=== PATIENT | female | born 1985 | race African-American/Black ===

== ENCOUNTER 2017-12-03 02:16 | Emergency (ER) | payer SELFPAY ==
[2017-12-03] MEDS ORDERED: D5NS 0.2% 1,000 ML IV SCH (05:00)
[2017-12-03 05:20] LABS: Basophils # (Auto) 0.2 K/mm3 (0.0-0.1); Basophils % (Auto) 1.2 % (0.0-1.8); Eosinophils # (Auto) 0.1 K/mm3 (0.0-0.4); Eosinophils % (Auto) 0.3 % (0.0-4.3); Hematocrit 23.3 % (30.3-42.9); Lymphocytes # (Auto) 2.1 K/mm3 (1.2-5.4); Lymphocytes % (Auto) 13.1 % (13.4-35.0); Mean Corpuscular HGB Conc 35 % (30-34); Mean Corpuscular Hemoglobin 36 pg (28-32); Mean Corpuscular Volume 104 fl (79-97); Monocytes % (Auto) 6.5 % (0.0-7.3); Platelet Count 574 K/mm3 (140-440); Red Blood Count 2.23 M/mm3 (3.65-5.03); Red Cell Distribution Width 18.2 % (13.2-15.2)
--- NOTE | 2017-12-03 06:54 | Emergency Department Report ---
ED General Adult HPI - General Chief complaint: Sickle Cell Crisis Stated complaint: SICKLE CELL CRISIS Time Seen by Provider: 12/03/17 06:18 Source: patient Mode of arrival: Ambulatory Limitations: No Limitations - History of Present Illness Initial comments: 32-year-old female with a past medical history is sickle cell crisis presents to the hospital complaints of pain secondary to sickle cell crisis since 1:00 yesterday afternoon. Patient complains of generalized body aches. She took a half oxycodone 30 mg and meloxicam prior to arrival and reports that pain has improved. Patient states that recently she's been diagnosed with ear infection and tendinitis and was placed on Meloxican, Medrol Dosepak, Ciprodex otic, and is currently taking oxycodone 30 mg and ibuprofen. Patient states she was picking at her left ear canal and he did have bleeding initially that has since resolved. Patient expresses that she is unsure if she should be on all this medication and requesting guidance and regarding her prescribed medications. Her customer service supervisor is Dr. Das. He does not have a primary care doctor. 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 She had a headache earlier and thought maybe it was secondary to her newly prescribed medications. This headache has since resolved. Patient denies fever. - Related Data Home Medications Medication Instructions Recorded Confirmed Last Taken Folic Acid [Folvite] 1 mg PO DAILY 05/14/13 12/03/17 09/06/13 Aspir-Low 81 mg PO DAILY 12/03/17 12/03/17 Unknown Ciprodex OTIC 5 drop AU QID 12/03/17 12/03/17 Unknown Hydroxyurea 500 mg PO DAILY 12/03/17 12/03/17 Unknown Ibuprofen 800 mg PO TID PRN 12/03/17 12/03/17 Unknown Medrol Dose Rick mg PO 12/03/17 Unknown Meloxicam 7.5 mg PO DAILY 12/03/17 12/03/17 Unknown Oxycodone HCl 30 mg PO DAILY PRN 12/03/17 12/03/17 Unknown Sertraline 50 mg PO DAILY 12/03/17 12/03/17 Unknown Allergies Allergy/AdvReac Type Severity Reaction Status Date / Time No Known Allergies Allergy Unverified 05/14/13 05:44 ED Review of Systems ROS: Stated complaint: SICKLE CELL CRISIS Other details as noted in HPI Comment: All other systems reviewed and negative ED Past Medical Hx - Past Medical History Hx Heart Attack/AMI: No Hx Congestive Heart Failure: No Hx Diabetes: No Hx Sickle Cell Disease: Yes (Hematology dr das) Hx Asthma: No Hx COPD: No - Surgical History Past Surgical History?: No - Social History Smoking Status: Never Smoker Substance Use Type: Marijuana - Medications Home Medications: Home Medications Medication Instructions Recorded Confirmed Last Taken Type Folic Acid [Folvite] 1 mg PO DAILY 05/14/13 12/03/17 09/06/13 History Aspir-Low 81 mg PO DAILY 12/03/17 12/03/17 Unknown History Ciprodex OTIC 5 drop AU QID 12/03/17 12/03/17 Unknown History Hydroxyurea 500 mg PO DAILY 12/03/17 12/03/17 Unknown History Ibuprofen 800 mg PO TID PRN 12/03/17 12/03/17 Unknown History Medrol Dose Rick mg PO 12/03/17 Unknown History Meloxicam 7.5 mg PO DAILY 12/03/17 12/03/17 Unknown History Oxycodone HCl 30 mg PO DAILY PRN 12/03/17 12/03/17 Unknown History Sertraline 50 mg PO DAILY 12/03/17 12/03/17 Unknown History ED Physical Exam - General Limitations: No Limitations - Other Other exam information: General: No limitations, patient is alert in no acute distress Head exam: Atraumatic, normocephalic Eyes exam: Normal appearance ENT: Moist mucous membrane, but lateral TMs normal. Abrasion to left ear canal without bleeding, erythema, or drainage. Neck exam: Normal inspection, full range of motion, no meningismus nontender Respiratory exam: Clear to auscultation bilateral, no wheezes, rales, crackles Cardiovascular: Normal rate and rhythm, normal heart sounds Abdomen: Soft, nondistended, and nontender, with normal bowel sounds, no rebound, or guarding Extremity: Full range of motion normal inspection no deformity Back: Normal Inspection, full range of motion, no tenderness Neurologic: Alert, oriented x3, cranial nerves intact, no motor or sensory deficit Psychiatric: normal affect, normal mood Skin: Warm, dry, intact ED Course Vital Signs 12/03/17 04:07 Temperature 98 F Pulse Rate 89 Respiratory 18 Rate Blood Pressure 121/56 O2 Sat by Pulse 100 Oximetry ED Medical Decision Making - Lab Data Result diagrams: 12/03/17 04:45 Lab Results 12/03/17 12/03/17 Range/Units 04:45 04:45 WBC 15.8 H (4.5-11.0) K/mm3 RBC 2.23 L (3.65-5.03) M/mm3 Hgb 8.0 L (10.1-14.3) gm/dl Hct 23.3 L (30.3-42.9) % MCV 104 H (79-97) fl MCH 36 H (28-32) pg MCHC 35 H (30-34) % RDW 18.2 H (13.2-15.2) % Plt Count 574 H (140-440) K/mm3 Lymph % (Auto) 13.1 L (13.4-35.0) % Mcnairy % (Auto) 6.5 (0.0-7.3) % Eos % (Auto) 0.3 (0.0-4.3) % Baso % (Auto) 1.2 (0.0-1.8) % Lymph # 2.1 (1.2-5.4) K/mm3 [place]nairy # 1.0 H (0.0-0.8) K/mm3 Eos # 0.1 (0.0-0.4) K/mm3 Baso # 0.2 H (0.0-0.1) K/mm3 Seg Neutrophils % 78.9 H (40.0-70.0) % Seg Neutrophils # 12.4 H (1.8-7.7) K/mm3 Percent Retic 8.10 H (0.78-2.58) % HCG, Qual Negative (Negative) - Medical Decision Making Patient have the signs and symptoms of a sickle cell crisis that is controlled with her current outpatient medication. Regarding guidance with the prescribed medication patient advised to follow-up with a primary care doctor and her customer service supervisor for further management. - Differential Diagnosis sickle cell crisis, infection, medication reaction Critical Care Time: No Critical care attestation.: If time is entered above; I have spent that time in minutes in the direct care of this critically ill patient, excluding procedure time. ED Disposition Clinical Impression: Sickle cell crisis Disposition: DC-01 TO HOME OR SELFCARE Is pt being admited?: No Does the pt Need Aspirin: No Condition: Stable Instructions: Sickle Cell Crisis (ED) Additional Instructions: Continue your current medication. Follow with the customer service supervisor and the primary care doctor provided or the primary care doctor of his choice. Referrals: AUREA ROY MD [Staff Physician] - 3-5 Days SANA ADS MD [Staff Physician] - 3-5 Days Time of Disposition: 06:55
[2017-12-03 07:12] VITALS: BP 94/52
== END 2017-12-03 07:14 | disposition home or self-care (01) ==
LOC: ED 02:16
DX: D57.00 Hb-SS disease with crisis, unspecified (principal); F12.10 Cannabis abuse, uncomplicated
CPT/HCPCS: 36415; 84703; 85025; 85045; 99283

== ENCOUNTER 2018-10-07 00:23 | Emergency (ER) | payer OTHER ==
[2018-10-07 01:07] VITALS: BP 128/78
[2018-10-07 01:49] LABS: Hematocrit 21.8 % (30.3-42.9); Hemoglobin 7.8 gm/dl (10.1-14.3); Mean Corpuscular HGB Conc 36 % (30-34); Mean Corpuscular Volume 101 fl (79-97); Platelet Count 498 K/mm3 (140-440); Red Blood Count 2.17 M/mm3 (3.65-5.03); Red Cell Distribution Width 18.9 % (13.2-15.2)
[2018-10-07 02:05] LABS: Alanine Aminotransferase 48 units/L (7-56); Albumin 4.4 g/dL (3.9-5); BUN/Creatinine Ratio 17; Blood Urea Nitrogen 10 mg/dL (7-17); Calcium 9.4 mg/dL (8.4-10.2); Hemolysis Index 24
[2018-10-07] MEDS ORDERED: BENADRYL IV ONE (03:07)
[2018-10-07] MEDS ORDERED: TORADOL IV ONE (03:07)
[2018-10-07] MEDS ORDERED: DILAUDID IV ONE ×2 (03:07→05:08)
[2018-10-07] MEDS ORDERED: ZOFRAN IV ONE (03:07)
--- NOTE | 2018-10-07 03:32 | Emergency Department Report ---
ED General Adult HPI - General Chief complaint: Sickle Cell Crisis Stated complaint: SICKLE CELL CRISIS Time Seen by Provider: 10/07/18 03:06 Source: patient Mode of arrival: Ambulatory Limitations: No Limitations - History of Present Illness Initial comments: 33-year-old female with past medical history sickle cell SS presents to the hospital complaining of pain secondary to sickle cell crisis for several days. Patient is using Motrin 800 mg and oxycodone 10 mg tablets without improvement. She complains of generalized joint pain. She currently denies chest pain, shortness of breath, headache, or abdominal pain. Patient denies cough, fever, or infectious symptom. She seldom has to come to the hospital because she is typically able to manage her sickle cell crisis attacks at home. Her meter inspector is Dr. Das. She does not have a port. Severity scale (0 -10): 10 - Related Data Home Medications Medication Instructions Recorded Confirmed Last Taken Folic Acid [Folvite] 1 mg PO DAILY 05/14/13 12/03/17 09/06/13 Aspir-Low 81 mg PO DAILY 12/03/17 12/03/17 Unknown Ciprodex OTIC 5 drop AU QID 12/03/17 12/03/17 Unknown Hydroxyurea 500 mg PO DAILY 12/03/17 12/03/17 Unknown Ibuprofen 800 mg PO TID PRN 12/03/17 12/03/17 Unknown Medrol Dose Rick mg PO 12/03/17 Unknown Meloxicam 7.5 mg PO DAILY 12/03/17 12/03/17 Unknown Oxycodone HCl 30 mg PO DAILY PRN 12/03/17 12/03/17 Unknown Sertraline 50 mg PO DAILY 12/03/17 12/03/17 Unknown Allergies Allergy/AdvReac Type Severity Reaction Status Date / Time No Known Allergies Allergy Verified 10/07/18 01:03 ED Review of Systems ROS: Stated complaint: SICKLE CELL CRISIS Other details as noted in HPI Comment: All other systems reviewed and negative ED Past Medical Hx - Past Medical History Hx Heart Attack/AMI: No Hx Congestive Heart Failure: No Hx Diabetes: No Hx Sickle Cell Disease: Yes (Hematology dr das) Hx Asthma: No Hx COPD: No - Social History Smoking Status: Never Smoker Substance Use Type: None - Medications Home Medications: Home Medications Medication Instructions Recorded Confirmed Last Taken Type Folic Acid [Folvite] 1 mg PO DAILY 05/14/13 12/03/17 09/06/13 History Aspir-Low 81 mg PO DAILY 12/03/17 12/03/17 Unknown History Ciprodex OTIC 5 drop AU QID 12/03/17 12/03/17 Unknown History Hydroxyurea 500 mg PO DAILY 12/03/17 12/03/17 Unknown History Ibuprofen 800 mg PO TID PRN 12/03/17 12/03/17 Unknown History Medrol Dose Rick mg PO 12/03/17 Unknown History Meloxicam 7.5 mg PO DAILY 12/03/17 12/03/17 Unknown History Oxycodone HCl 30 mg PO DAILY PRN 12/03/17 12/03/17 Unknown History Sertraline 50 mg PO DAILY 12/03/17 12/03/17 Unknown History ED Physical Exam - General Limitations: No Limitations - Other Other exam information: General: No limitations, patient is alert in no acute distress Head exam: Atraumatic, normocephalic Eyes exam: Normal appearance, pale conjunctivae ENT: Moist mucous membrane, normal oropharynx Neck exam: Normal inspection, full range of motion, no meningismus nontender Respiratory exam: Clear to auscultation bilateral, no wheezes, rales, crackles Cardiovascular: Normal rate and rhythm, normal heart sounds Abdomen: Soft, nondistended, and nontender, with normal bowel sounds, no rebound, or guarding Extremity: Full range of motion normal inspection no deformity Back: Normal Inspection, full range of motion, no tenderness Neurologic: Alert, oriented x3, cranial nerves intact, no motor or sensory deficit Psychiatric: normal affect, normal mood Skin: Warm, dry, intact ED Course Vital Signs 10/07/18 10/07/18 00:51 01:03 Temperature 97.7 F 97.1 F L Pulse Rate 89 85 Respiratory 16 18 Rate Blood Pressure 128/78 Blood Pressure 128/78 [Left] O2 Sat by Pulse 98 97 Oximetry ED Medical Decision Making - Lab Data Result diagrams: 10/07/18 01:19 10/07/18 01:19 Lab Results 10/07/18 10/07/18 Range/Units 01:19 01:19 WBC 11.2 H (4.5-11.0) K/mm3 RBC 2.17 L (3.65-5.03) M/mm3 Hgb 7.8 L (10.1-14.3) gm/dl Hct 21.8 L (30.3-42.9) % MCV 101 H (79-97) fl MCH 36 H (28-32) pg MCHC 36 H (30-34) % RDW 18.9 H (13.2-15.2) % Plt Count 498 H (140-440) K/mm3 Lymph # [employer] Tester Total Counted 100 Seg Neuts % (Manual) 54.0 (40.0-70.0) % Band Neutrophils % 0 % Lymphocytes % (Manual) 30.0 (13.4-35.0) % Reactive Lymphs % (Man) 1.0 % Monocytes % (Manual) 13.0 H (0.0-7.3) % Eosinophils % (Manual) 2.0 (0.0-4.3) % Basophils % (Manual) 0 (0.0-1.8) % Metamyelocytes % 0 % Myelocytes % 0 % Promyelocytes % 0 % Blast Cells % 0 % Nucleated RBC % 1.0 H (0.0-0.9) % Seg Neutrophils # Man 6.0 (1.8-7.7) K/mm3 Band Neutrophils # 0.0 K/mm3 Lymphocytes # (Manual) 3.4 (1.2-5.4) K/mm3 Abs React Lymphs (Man) 0.1 K/mm3 Monocytes # (Manual) 1.5 H (0.0-0.8) K/mm3 Eosinophils # (Manual) 0.2 (0.0-0.4) K/mm3 Basophils # (Manual) 0.0 (0.0-0.1) K/mm3 Metamyelocytes # 0.0 K/mm3 Myelocytes # 0.0 K/mm3 Promyelocytes # 0.0 K/mm3 Blast Cells # 0.0 K/mm3 Platelet Estimate Appe Large Platelets 1+ Anisocytosis 2+ Sickle Cells 1+ Percent Retic 8.60 H (0.78-2.58) % Sodium 140 (137-145) mmol/L Potassium 4.8 (3.6-5.0) mmol/L Chloride 104.3 (98-107) mmol/L Carbon Dioxide 26 (22-30) mmol/L Anion Gap 15 mmol/L BUN 10 (7-17) mg/dL Creatinine 0.6 L (0.7-1.2) mg/dL Estimated GFR > 60 ml/min BUN/Creatinine Ratio 17 % Glucose 103 H (65-100) mg/dL Calcium 9.4 (8.4-10.2) mg/dL Total Bilirubin 1.90 H (0.1-1.2) mg/dL AST 67 H (5-40) units/L ALT 48 (7-56) units/L Alkaline Phosphatase 91 (35-129) units/L Total Protein 7.4 (6.3-8.2) g/dL Albumin 4.4 (3.9-5) g/dL Albumin/Globulin Ratio 1.5 % - Medical Decision Making pt feels better with ed tx pt states baseline hgb 8 and therefore she does not require transfusion at this time Patient states she has enough pain medicine - Differential Diagnosis sickle cell anemia, sickle cell crisis Critical Care Time: No Critical care attestation.: If time is entered above; I have spent that time in minutes in the direct care of this critically ill patient, excluding procedure time. ED Disposition Clinical Impression: Sickle cell crisis, Sickle cell anemia Disposition: TO HOME OR SELFCARE Is pt being admited?: No Does the pt Need Aspirin: No Condition: Stable Instructions: Sickle Cell Crisis (ED) Additional Instructions: Take the medication as prescribed. Follow up with your doctor or the clinic/doctor provided. Return if symptoms worsen as indicated by your discharge instructions Referrals: SANA DAS MD [Staff Physician] - [facility] Time of Disposition: 05:47
[2018-10-07] MEDS ORDERED: D5NS 0.2% 1,000 ML IV SCH (04:00)
[2018-10-07 04:14] LABS: Basophils % (Manual) 0 % (0.0-1.8); Total Cells Counted 100
[2018-10-07 04:17] LABS: Anisocytosis 2+
[2018-10-07 04:18] LABS: Large Platelets 1+; Sickle Cells 1+
[2018-10-07 04:19] LABS: Platelet Estimate Appe
[2018-10-07] MEDS ORDERED: DILAUDID ONE (05:11)
== END 2018-10-07 07:10 | disposition home or self-care (01) ==
LOC: ED 00:23
DX: D57.00 Hb-SS disease with crisis, unspecified (principal); D57.1 Sickle-cell disease without crisis
CPT/HCPCS: 36415; 80053; 85007; 85025; 85045; 96374; 96375; 96376; 99283; J1170; J1200; J1885; J2405

== ENCOUNTER 2018-10-07 14:09 | Emergency (ER) | payer OTHER ==
[2018-10-07] MEDS ORDERED: TORADOL IV ONE (16:30)
[2018-10-07] MEDS ORDERED: DILAUDID IV ONE ×2 (16:31→17:35)
--- NOTE | 2018-10-07 16:31 | Emergency Department Report ---
ED General Adult HPI - General Chief complaint: Sickle Cell Crisis Stated complaint: SICKLE CELL CRISIS Time Seen by Provider: 10/07/18 16:24 Source: patient, RN notes reviewed, old records reviewed Mode of arrival: Ambulatory Limitations: No Limitations - History of Present Illness Initial comments: Hematology: Dr. Rolon This is a 33-year-old female, with a reported history of sickle cell disease, reports that she is not . Patient presents to the emergency room today with a recurrent complaint of nontraumatic left sided knee pain, and left anterior tibial pain. The pain is aching and sharp. It increases with palpation. It decreases with rest and pain medication. Patient was seen earlier on today for sickle cell crisis by my colleague Dr. Dutton, patient had a thorough and appropriate evaluation and was discharged. The patient was offered pain medication upon discharge but declined. She now indicates that she would like pain medication. She denies headache, neck pain, chest pain, abdominal pain, shortness of breath, fever, rash. Triggers include recreational alcohol consumption yesterday. -: Gradual Location: left, lower extremity Radiation: non-radiation Quality: aching Consistency: constant Improves with: medication, rest Worsens with: movement - Related Data Home Medications Medication Instructions Recorded Confirmed Last Taken Folic Acid [Folvite] 1 mg PO DAILY 05/14/13 12/03/17 09/06/13 Aspir-Low 81 mg PO DAILY 12/03/17 12/03/17 Unknown Ciprodex OTIC 5 drop AU QID 12/03/17 12/03/17 Unknown Hydroxyurea 500 mg PO DAILY 12/03/17 12/03/17 Unknown Ibuprofen 800 mg PO TID PRN 12/03/17 12/03/17 Unknown Medrol Dose Rick mg PO 12/03/17 Unknown Meloxicam 7.5 mg PO DAILY 12/03/17 12/03/17 Unknown Oxycodone HCl 30 mg PO DAILY PRN 12/03/17 12/03/17 Unknown Sertraline 50 mg PO DAILY 12/03/17 12/03/17 Unknown Previous Rx's Medication Instructions Recorded Last Taken Type Acetaminophen [Non-Aspirin Extra 500 mg PO Q6HR PRN #30 tablet 10/07/18 Unknown Rx Strength] Ibuprofen [Motrin] 400 mg PO Q8H PRN #20 tablet 10/07/18 Unknown Rx oxyCODONE [Roxicodone] 5 mg PO Q6HR PRN #15 tablet 10/07/18 Unknown Rx Allergies Allergy/AdvReac Type Severity Reaction Status Date / Time No Known Allergies Allergy Verified 10/07/18 14:12 ED Review of Systems ROS: Stated complaint: SICKLE CELL CRISIS Other details as noted in HPI Constitutional: denies: fever Eyes: denies: eye discharge ENT: denies: epistaxis Respiratory: denies: cough Cardiovascular: denies: chest pain Gastrointestinal: denies: abdominal pain Genitourinary: denies: dysuria Musculoskeletal: arthralgia, myalgia Skin: denies: lesions Neurological: denies: headache ED Past Medical Hx - Past Medical History Hx Heart Attack/AMI: No Hx Congestive Heart Failure: No Hx Diabetes: No Hx Sickle Cell Disease: Yes Hx Asthma: No Hx COPD: No - Social History Smoking Status: Never Smoker Substance Use Type: Alcohol - Medications Home Medications: Home Medications Medication Instructions Recorded Confirmed Last Taken Type Folic Acid [Folvite] 1 mg PO DAILY 05/14/13 12/03/17 09/06/13 History Aspir-Low 81 mg PO DAILY 12/03/17 12/03/17 Unknown History Ciprodex OTIC 5 drop AU QID 12/03/17 12/03/17 Unknown History Hydroxyurea 500 mg PO DAILY 12/03/17 12/03/17 Unknown History Ibuprofen 800 mg PO TID PRN 12/03/17 12/03/17 Unknown History Medrol Dose Rick mg PO 12/03/17 Unknown History Meloxicam 7.5 mg PO DAILY 12/03/17 12/03/17 Unknown History Oxycodone HCl 30 mg PO DAILY PRN 12/03/17 12/03/17 Unknown History Sertraline 50 mg PO DAILY 12/03/17 12/03/17 Unknown History Acetaminophen [Non-Aspirin Extra 500 mg PO Q6HR PRN #30 tablet 10/07/18 Unknown Rx Strength] Ibuprofen [Motrin] 400 mg PO Q8H PRN #20 tablet 10/07/18 Unknown Rx oxyCODONE [Roxicodone] 5 mg PO Q6HR PRN #15 tablet 10/07/18 Unknown Rx ED Physical Exam - General Limitations: No Limitations General appearance: alert, in no apparent distress - Head Head exam: Present: atraumatic, normocephalic - Eye Eye exam: Present: normal appearance, EOMI. Absent: nystagmus - ENT ENT exam: Present: normal exam, normal orophraynx, mucous membranes moist, normal external ear exam - Neck Neck exam: Present: normal inspection, full ROM. Absent: tenderness, meningismus - Respiratory Respiratory exam: Present: normal lung sounds bilaterally. Absent: respiratory distress - Cardiovascular Cardiovascular Exam: Present: normal rhythm, tachycardia, normal heart sounds. Absent: systolic murmur, diastolic murmur, rubs, gallop - GI/Abdominal GI/Abdominal exam: Present: soft. Absent: distended, tenderness, guarding, rebound, rigid, pulsatile mass - Extremities Exam Extremities exam: Present: normal inspection, full ROM, tenderness, other (2+ pulses noted in the bilateral upper extremities. There is left proximal tibia tenderness. There is no redness, pus or streaking. Compartments are soft.) - Back Exam Back exam: Present: normal inspection, full ROM. Absent: tenderness, CVA tenderness (R), CVA tenderness (L), paraspinal tenderness, vertebral tenderness - Neurological Exam Neurological exam: Present: alert, oriented X3, other (Extraocular movements intact. Tongue midline. No facial droop. Facial sensation intact to light touch in the V1, V2, V3 distribution bilaterally. 5 and 5 strength in 4 extremities.. Sensation is intact to light touch in 4 extremities.). Absent: motor sensory deficit - Psychiatric Psychiatric exam: Present: anxious - Skin Skin exam: Present: warm, dry, intact, normal color. Absent: rash ED Course Vital Signs 10/07/18 10/07/18 10/07/18 15:00 17:00 18:15 Temperature 98.2 F Pulse Rate 113 H 80 73 Respiratory 18 16 16 Rate Blood Pressure 116/75 Blood Pressure 107/54 105/58 [Right] O2 Sat by Pulse 96 94 94 Oximetry - Reevaluation(s) Reevaluation #1: 10/07/18 16:54 Differential diagnosis, including but not limited to: Sickle cell crisis Assessment and plan: 33-year-old female with multiple recurrent sickle cell crisis. She is afebrile with reassuring vital signs with the exception of tachycardia. Laboratory studies were performed earlier on today and are reviewed and appreciated. I see no reason to repeat the patient's laboratory studies. We will treat her pain and her symptoms. Reevaluation #2: 10/07/18 18:25 Patient resting comfortably. Pain is improved. Sleeping on repeat examination. Tachycardia resolved. We will discharge the patient with pain medicine to go home with. 10/07/18 18:25 Looked patient up on [facility] prescription monitoring database, and have not found any recent narcotic or controlled substance prescriptions. ED Medical Decision Making - Lab Data Vital Signs 10/07/18 15:00 Temperature 98.2 F Pulse Rate 113 H Respiratory 18 Rate Blood Pressure 116/75 O2 Sat by Pulse 96 Oximetry Critical care attestation.: If time is entered above; I have spent that time in minutes in the direct care of this critically ill patient, excluding procedure time. ED Disposition Clinical Impression: Sickle cell disease Qualifiers: Sickle-cell associated disorders: with unspecified crisis Qualified Code(s): D57.00 - Hb-SS disease with crisis, unspecified Disposition: - TO HOME OR SELFCARE Is pt being admited?: No Does the pt Need Aspirin: No Condition: Stable Instructions: Sickle Cell Crisis (ED) Additional Instructions: Take the pain medications as needed/directed. Follow up with her primary care doctor or talent development coordinator within the next week to 10 days. Avoid or decrease consumption of alcohol. Return to the emergency room right away with it, worsens or different symptoms, or symptoms not present on the initial emergency room evaluation. Referrals: SANA ROLON MD [Staff Physician] - 3-5 Days
[2018-10-07] MEDS ORDERED: D5/0.45NS 1,000 ML IV SCH ×2 (17:00)
[2018-10-07] MEDS ORDERED: ZOFRAN IV ONE (17:04)
[2018-10-07] MEDS ORDERED: BENADRYL PO ONE (17:04)
[2018-10-07] MEDS ORDERED: PERCOCET 5/325 PO ONE (18:22)
[2018-10-07 18:27] VITALS: BP 105/58
== END 2018-10-07 19:00 | disposition home or self-care (01) ==
LOC: ED 14:09
DX: D57.1 Sickle-cell disease without crisis (principal)
CPT/HCPCS: 96374; 96375; 96376; 99283; J1170; J1885; J2405